=== PATIENT | female | born 1975 | race Two or more races ===

== ENCOUNTER 2021-07-10 02:28 | Emergency (ER) | payer OTHER ==
[~2021-07-10] VITALS: Ht 167.6 cm; Wt 72.6 kg
[2021-07-10] MEDS ORDERED: KETO10TA2 PO (06:52)
[2021-07-10] MEDS ORDERED: CEPHALEXIN500 MG PO (06:52)
== END 2021-07-10 07:16 ==
LOC: ER 02:28
DX: N39.0 Urinary tract infection, site not specified (principal); R10.32 Left lower quadrant pain